=== PATIENT | female | born 1945 | race Caucasian/White ===

== ENCOUNTER 2016-04-02 08:37 | Inpatient (IN) | payer MEDICARE ==
[2016-04-02] MEDS ORDERED: CEFAZOLIN 1 GM VIAL ONE (08:51)
[2016-04-02] MEDS ORDERED: TRANEXAMIC ACID 1,000 MG in NS 100 ML IV ONE (09:00)
[2016-04-02] MEDS: BUPIVACAINE LIPOSOME/PF 1.3% 20 ML VIAL INF ONE ×2 (09:04→11:45)
[2016-04-02 09:13] LABS: BLOOD UREA NITROGEN 25 MG/DL (7-17); CALCIUM 9.8 MG/DL (8.4-10.2); CALCULATED OSMOLALITY 279 MOs/Kg (270-290); CHLORIDE 103 mEq/L (98-107); GLUCOSE 100 MG/DL (70-99); SODIUM LEVEL 143 mEq/L (137-146)
[2016-04-02] MEDS ORDERED: ONDANSETRON HCL 4 MG/2 ML VIAL IV PRN ×2 (09:22→10:06)
[2016-04-02] MEDS ORDERED: hydrALAZINE 20 MG/ML VIAL IV PRN (09:22)
[2016-04-02] MEDS ORDERED: MEPERIDINE 25 MG/ML TUBEX IV PRN (09:22)
[2016-04-02] MEDS ORDERED: LABETALOL 20 MG/4 ML SYRINGE IV PRN (09:22)
[2016-04-02] MEDS ORDERED: HYDROmorphone 1 MG INJECTION IV PRN ×4 (09:22→10:06)
[2016-04-02] MEDS ORDERED: ONDANSETRON HCL 4 MG ODT TAB PO PRN (09:22)
[2016-04-02] MEDS ORDERED: PROMETHAZINE 25 MG/ML VIAL IV PRN ×2 (09:22)
[2016-04-02] MEDS ORDERED: FENTANYL 100 MCG/2 ML VIAL IV PRN ×2 (09:22)
--- NOTE | 2016-04-02 09:26 | SC.ANESPOS ---
Post-Anesthesia Note LOC: [facility] Calling Post-Anesthesia Assessment: Awake, Returned to Baseline, Hemodynamically Stable , Pain Control Adequate Phase I & II Recovery Complete: Yes Apparent Anesthesia Complication: No : N - Vital Signs Blood Pressure: 150/81 Pulse: 91 Resp Rate: 16 O2 Sat: 94 Temp: 98.5 F
--- NOTE | 2016-04-02 09:46 | HIM.ANES ---
Anesthesia Evaluation & Plan Diagnoses: UNILATERAL PRIMARY OSTEOARTHRITIS, RIGHT KNEE (04/02/16) Consented Procedure: right total knee arthroscopy - Focused Review of Systems Cardiac History: Yes: Hx Hypertension, Hx Cardiac Disorders, Hx Abnormal Cholesterol/Hyperlipidemia HEENT: Yes: Cataract Removal (LENS IMPLANTS), Hx Vision Problem (READING GLASSES ), Other HEENT Problems Hx Other HEENT Surgery: TONSILECTOMY Gastrointestinal: Yes: Hx Colonoscopy (2009 NORMAL) No: Hx Gastroesophageal Reflux Disease, Hx Gastrointestinal Disorders Neurological/Musculoskeletal: No: Hx Neurological Disorders Psychological: No Hx Mental/Emotional Disorders Blood/Autoimmune: No: Hx AIDS, Hx Hepatitis (type) Smoking Status: Never smoker Surgical History: Yes: Knee (RT ARTHROSCOPIC SX 2011) Other Surgical History: TONSILECTOMY - Focused Physical Exam NPO since: 04/01/16 1700 Mallampati: Class IV Thyromental Distance: Greater than 3 Neck: Full Range of Motion Dental: Removable Dental Work Cardiovascular/Chest: Normal Respiratory: Decreased breath sounds Any problems with anesthesia, including nausea and vomiting?: No Any relatives with a history of Malignant Hyperthermia?: No Beta Waldemar given (if appropriate): N/A Other: CBC/BMP/Other 04/02/16 08:48 Allergies Allergy/AdvReac Type Severity Reaction Status Date / Time meloxicam [From Mobic] Allergy Unknown Verified 04/02/16 09:02 Home Medications Medication Instructions Recorded Last Taken Type Cyanocobalamin (Vitamin B-12) 1,000 mcg PO DAILY 02/19/16 04/01/16 History [Vitamin B-12] Enalapril Maleate 20 mg PO DAILY 02/19/16 04/02/16 07:15 History Ergocalciferol (Vitamin D2) 50,000 units PO WEEKLY 02/19/16 04/01/16 History [Vitamin D] Simvastatin [Zocor] 10 mg PO HS 02/19/16 04/01/16 History Height and Weight Patient's height 5 ft 3 in Patient's weight 205 lb Vital Signs Temperature 98.5 F 04/02/16 09:26 Pulse Rate 91 04/02/16 09:26 Respiratory Rate 16 04/02/16 09:26 Blood Pressure 150/81 04/02/16 09:26 Pulse Oxygen Saturation 94 04/02/16 09:26 - Anesthetic Plan Anesthesia Type: General ASA Class: 2 -: I have examined this patient and reviewed the medical record. The patient has been assessed prior to anesthesia. Risks and benefits of anesthesia and anesthetic technique options have been discussed and all questions answered. The patient accepts the risk and desires me to proceed with the planned anesthetic.
[2016-04-02] MEDS ORDERED: PROPOFOL 200 MG/20 ML VIAL IV ONE (10:00)
[2016-04-02] MEDS ORDERED: LIDOCAINE 100 MG PFS IV ONE (10:00)
[2016-04-02] MEDS ORDERED: MIDAZOLAM 2 MG/2 ML VIAL IV ONE (10:00)
[2016-04-02] MEDS ORDERED: ONDANSETRON HCL 4 MG/2 ML VIAL IV ONE (10:00)
[2016-04-02] MEDS ORDERED: SUCCINYLCHOLINE 20 MG/1 ML INJ 10 ML MDV IV ONE (10:00)
[2016-04-02] MEDS ORDERED: HYDROmorphone 2 MG/ML VIAL IM ONE (10:00)
[2016-04-02] MEDS ORDERED: DEXAMETHASONE 4 MG/ML VIAL IV ONE (10:00)
[2016-04-02] MEDS ORDERED: FENTANYL 100 MCG/2 ML VIAL IV ONE (10:00)
[2016-04-02] MEDS ORDERED: KETOROLAC TROMETH 30 MG/ML VIAL IM ONE (10:00)
[2016-04-02] MEDS ORDERED: MAGNESIUM HYDROXIDE 30 ML BOTTLE PO PRN (10:06)
[2016-04-02] MEDS ORDERED: Aluminum;Magnesium;Simethicone 30 ML UDC PO PRN (10:06)
[2016-04-02] MEDS ORDERED: DIPHENHYDRAMINE 25 MG CAP PO PRN (10:06)
[2016-04-02] MEDS ORDERED: SODIUM CHLORIDE 0.9% 3 ML FLUSH FLUSH PRN (10:06)
[2016-04-02] MEDS ORDERED: DIPHENHYDRAMINE 50 MG/ML VIAL IV PRN (10:06)
--- NOTE | 2016-04-02 10:14 | HIMOPRPT ---
PREOPERATIVE DIAGNOSIS: Right knee end-stage degenerative joint disease. POSTOPERATIVE DIAGNOSIS: Right knee end-stage degenerative joint disease. PROCEDURE: Right total knee arthroplasty. FINDINGS: End-stage varus gonarthrosis. SPECIMENS REMOVED: Portions of the distal femur, proximal tibia, and posterior patella. EBL: 30 mL. ANESTHESIA: General. COMPLICATIONS: None. SURGEON: Steven Dalal MD. PASSENGER TIRE BUILDER: LES Rodriguez. TOURNIQUET TIME: 43 minutes at 250 mmHg. IMPLANTS: Ruma Triathlon total knee system, metal size 3 cruciate retaining femur; size 4 metallic tibial base plate; 11 mm size 4 tibia polyethylene insert ; 29 x 9 mm asymmetric patella. SIGNIFICANT HISTORY, INDICATIONS, AND CONSENT: Svetlana is a 70-year-old female with longstanding history of right knee pain recalcitrant to conservative treatment secondary to osteoarthritis. After discussing risks, benefits, and alternatives of non-operative treatment and operative intervention, the patient wished to proceed with surgical intervention and consent was obtained with potential benefits of improved knee pain and improved function. OPERATION IN DETAIL: The patient was seen in the preop holding area. The right lower extremity was signed. Consent was reviewed, questions were answered, H and P updated. SCD was placed on the left lower extremity. The patient was taken to the operative room, placed in supine position on the operative table, anesthesia placed monitoring devices and performed intubation. Tourniquet was placed high on the right lower extremity with the right lower extremity being sterilely prepped and draped in the usual orthopedic fashion. Time-out was performed. The patient received prophylactic antibiotics. Consensus was reached amongst participants in the OR suite. Esmarch was used to exsanguinate the limb. Tourniquet raised to 250 mmHg. Standard anterior approach to the knee was performed incising sharply through skin and then performed a medial parapatellar arthrotomy. The superficial MCL was carefully released subperiosteally of the proximal tibia medially. We then released anterior soft tissue structures, everted the patella and gently flexed the knee, being careful to avoid injury to the patellar tendon distally. Next, intramedullary guide was placed within the femur intramedullary canal. We then performed a distal femoral cut removing 8 mm, 5 degrees valgus. After a distal cut was made, this was sized using a posterior condyle referencing system to be a size 3 femur, size 3 cutting block was placed and distal femoral cuts were made in standard fashion. ACL was removed and PCL gently retracted. End-stage medial and patellofemoral arthrosis was noted. Extramedullary guide was placed for a tibial cut, which was perpendicular to the tibia and in line with the tibial crest. Once this was placed, we removed 9 from the high side with 2 mm removed from the more worn plateau. After tibial cut was made, we checked our alignment and found this to be quite appropriate. We then performed flexion-extension gap measuring, and again addressed our soft tissue balancing to appropriately balance the knee. A size 11 mm deep dish insert was found to be most suitable. Our tibial baseplate was sized and rotated in line with the medial 1/3 of the tibial tubercle. This was provisionally pinned and attention turned to our patella cut. Our patella was then sized, removing approximately 7 mm of bone after measuring 22 mm. Fifteen remained, this was sized to a 29 mm patella and the patella was drilled. Components were placed and provisional implants were found to be acceptable in regards to range of motion and ligamentous stability throughout the motion arc. We then performed our fin cut and drilled our femoral implant. Provisional implants were then removed. The cut surfaces were then thoroughly irrigated and dried for cementation. Cementation was being mixed on the back table while we injected Exparel within the deep structures of the knee being careful to aspirate prior to injection. 0.25% Marcaine was also injected at this time in standard fashion. We then began cementation of our tibial, femoral, and patellar components in standard fashion. After these were cemented and held until cement had hardened, excess cement was removed. Range of motion and stability were found to be appropriate. We then allowed tourniquet to be released and immaculate hemostasis was performed with Bovie cautery. Medial parapatellar arthrotomy was closed at the superomedial border of the patella with #1 Ethibond in an interrupted fashion. The remainder of the arthrotomy closed with #1 barbed PDS in a watertight closure. We used 2-0 Vicryl for subcutaneous closure and seb for skin. Sterile soft tissue dressing was placed. The patient was placed in the CHANDLER hose aroused by Anesthesia and taken to postanesthesia care in stable condition. PLAN: The patient will be admitted to Orthopedic Service. Begin CPM in the PACU. Radiographs will be taken in the PACU. 24 hours perioperative antibiotics will be given with 14 days of DVT chemoprophylaxis, and physical therapy beginning this evening
[2016-04-02] MEDS ORDERED: BUPIVACAINE 0.5% 30 ML VIAL ONE (10:31)
[2016-04-02] MEDS ORDERED: SODIUM CHLORIDE 0.9% 3 ML FLUSH FLUSH SCH (11:00)
[2016-04-02] MEDS ORDERED: Pharmacy Discontinue All Previous Acetaminophen Orders SCH (11:00)
[2016-04-02] MEDS ORDERED: NALOXONE 0.4 MG/ML AMPULE IV SCH (11:00)
[2016-04-02] MEDS ORDERED: LR 1,000 ML IV ONE (13:32)
--- NOTE | 2016-04-02 13:39 | DIRPT ---
CLINICAL DATA: Status post elective knee replacement EXAM: PORTABLE RIGHT KNEE - 1-2 VIEW COMPARISON: None in PACs FINDINGS: AP and lateral portable postoperative images reveal placement of a total knee joint prosthesis. Radiographic positioning of the prosthetic components is good. The interface with the [place] bone is normal. There is small amount of fluid and gas in the anterior aspect of the joint space. Skin seb are present. IMPRESSION: There is no immediate postprocedure complication following right total knee joint replacement. Electronically Signed By: French Hernández M.D. On: 04/02/2016 13:36
[2016-04-02] MEDS: CYANOCOBALAMIN (Vitamin B-12) 500 MCG TABLET PO SCH (15:31)
[2016-04-02] MEDS: ACETAMINOPHEN 325 MG/TAB TABLET PO SCH ×2 (15:32→19:48)
--- NOTE | 2016-04-02 17:10 | PCM.ORTHBL ---
- Subjective Hospital Day #: 1 Post Op Day: 0 (s/p R TKA ) Daily Assessment - Patient: Reports: No new complaints, Tolerating liquids well , Afebrile, Ambulating with Physical Therapist - Objective / Physical Exam Vital Signs: Temperature: 97.7 F (04/02/16 15:30) HR: 95 (04/02/16 15:45)RR: 18 (04/02/16 15: 45) BP: 148/86 (04/02/16 15:45)Pulse Ox: 94 (04/02/16 15:45) General: Alert, Oriented x3, Cooperative, Obese Musculoskeletal / Extremities: 2 plus Dorsalis Pedis Pulse, Dressing Clean/Dry/ Intact Neurological: Positive Sensation First Dorsal Web Space, Sensation to light touch intact, Extensor Hallicus Longus Intact, Flexor Hallicus Longus Intact, Dorsiflexion Intact, Plantarflexion Intact Skin: Warm,Dry and Intact Laboratory/Diagnostics Reviewed: Laboratory Results - last 24 hr 04/02/16 04/02/16 04/02/16 08:48 08:48 12:50 Hgb 12.9 Hct 39.0 Sodium 143 Potassium 4.3 Chloride 103 Carbon Dioxide 28 Anion Gap 16 BUN 25 H Creatinine 1.30 H Estimated GFR (MDRD) 41 L Glucose 100 H Calculated Osmolality 279 Calcium 9.8 Blood Type O POSITIVE Antibody Screen Negative - Assessment and Plan (1) Status post total right knee replacement using cement Acute Z96.651 - PRESENCE OF RIGHT ARTIFICIAL KNEE JOINT Present on Admission: No Comment/Plan: s/p R TKA doing well. Post op anbx x 24 hrs, start DVT ppx with ASA 325 mg po BID x 14 days. PT/OT for TK protocol. Pain control with oral and IV meds, ice, and rest. Dispo planning.
[2016-04-02] MEDS: SODIUM CHLORIDE 0.9% 3 ML FLUSH FLUSH SCH (17:12)
[2016-04-02] MEDS ORDERED: Vaccine Screening Complete SCH (18:00)
[2016-04-02] MEDS: PANTOPRAZOLE 40 MG TAB PO SCH (18:02)
[2016-04-02] MEDS: Cefazolin 2gm/50 ml D5W 2 GM/50 ML RTU IV SCH (18:02)
[2016-04-02] MEDS: Aspirin (Orange Enteric Coated) 325 mg tab PO SCH (18:03)
[2016-04-02] MEDS: SIMVASTATIN 10 MG TAB PO SCH (19:48)
[2016-04-02] MEDS: DOCUSATE-SENNA CONCENTRATE TAB PO SCH (19:48)
[2016-04-03] MEDS: Cefazolin 2gm/50 ml D5W 2 GM/50 ML RTU IV SCH ×2 (01:01→08:48)
[2016-04-03] MEDS: PANTOPRAZOLE 40 MG TAB PO SCH ×2 (05:02→18:32)
[2016-04-03] MEDS: ACETAMINOPHEN 325 MG/TAB TABLET PO SCH ×3 (05:02→21:49)
[2016-04-03] MEDS: SODIUM CHLORIDE 0.9% 3 ML FLUSH FLUSH SCH ×2 (05:02→18:32)
--- NOTE | 2016-04-03 06:39 | PCM.ORTHBL ---
- Subjective Chief Complaint: Right knee pain Hospital Day #: 2 Post Op Day: 1 (s/p R TKA ) Daily Assessment - Patient: Reports: No new complaints, Still having pain, Pain is less - Objective / Physical Exam Vital Signs: Temperature: 97.8 F (04/03/16 05:29) HR: 72 (04/03/16 05:29)RR: 18 (04/03/16 05: 29) BP: 129/71 (04/03/16 05:29)Pulse Ox: 94 (04/03/16 05:29) General: Alert, Oriented x3, Cooperative, No acute distress Musculoskeletal / Extremities: 2 plus Dorsalis Pedis Pulse, Dressing Clean/Dry/ Intact, Swelling (mild) Neurological: Sensation to light touch intact (DP/SP/T/S/S), Extensor Hallicus Longus Intact, Flexor Hallicus Longus Intact, Dorsiflexion Intact, Plantarflexion Intact Skin: Warm,Dry and Intact, No rashes, No breakdown Laboratory/Diagnostics Reviewed: Laboratory Results - last 24 hr 04/02/16 04/02/16 04/02/16 08:48 08:48 12:50 Hgb 12.9 Hct 39.0 Sodium 143 Potassium 4.3 Chloride 103 Carbon Dioxide 28 Anion Gap 16 BUN 25 H Creatinine 1.30 H Estimated GFR (MDRD) 41 L Glucose 100 H Calculated Osmolality 279 Calcium 9.8 Blood Type O POSITIVE Antibody Screen Negative - Assessment and Plan (1) Status post total right knee replacement using cement Acute Z96.651 - PRESENCE OF RIGHT ARTIFICIAL KNEE JOINT Present on Admission: No Plan: 70-year-old female postoperative day 1. Status post right total knee arthroplasty. Patient is doing well with pain control. Formal therapy today for gait training, weight-bearing as tolerated. Continue aspirin 325 mg p.o. b.i.d. times 14 days postoperatively. Will finish 24 hours perioperative antibiotics today. Continue SCDs. Anticipate discharge home with home health tomorrow.
--- NOTE | 2016-04-03 06:44 | PCM.DCS92 ---
- Final/Secondary Discharge Diagnosis (1) Status post total right knee replacement using cement Acute Z96.651 - PRESENCE OF RIGHT ARTIFICIAL KNEE JOINT Present on Admission: No Discharge Disposition: Discharge w/ Home Health Discharge Condition: Stable Cognitive Discharge Status: Unimpaired Fuctional Discharge Status: Recent lower extremety joint replacement Physician Follow up/Referrals: Steven Dalal MD [Staff Physician] - Keep Scheduled Appt New Prescriptions: Aspirin (OrangeEnteric Coated) [Ecotrin] 325 mg PO BIDWM #30 tablet Docusate-Senna Concentrate [Senokot S or Tiffanie Colace] 2 tab PO HS #60 tablet Oxycodone Immediate Release [Oxycodone Immediate Release (OxyIR)] 5 - 10 mg PO Q4 PRN #30 tablet PRN Reason: MODERATE TO SEVERE PAIN Discharge Home Medication List Cyanocobalamin (Vitamin B-12) [Vitamin B-12] 1,000 mcg PO DAILY 02/19/16 [ History Confirmed 04/02/16 Last Taken 04/01/16] Enalapril Maleate 20 mg PO DAILY 02/19/16 [History Confirmed 04/02/16 Last Taken 04/02/16 07:15] Ergocalciferol (Vitamin D2) [Vitamin D2 (ergocalciferol)] 50,000 units PO MOFR 02/19/16 [History Confirmed 04/02/16 Last Taken 04/01/16] Simvastatin [Zocor] 10 mg PO HS 02/19/16 [History Confirmed 04/02/16 Last Taken 04/01/16] Aspirin (OrangeEnteric Coated) [Ecotrin] 325 mg PO BIDWM #30 tablet 04/04/16 [ Rx Last Taken Unknown] Docusate-Senna Concentrate [Senokot S or Tiffanie Colace] 2 tab PO HS #60 tablet 03/09 [Rx Last Taken Unknown] Oxycodone Immediate Release [Oxycodone Immediate Release (OxyIR)] 5 - 10 mg PO Q4 PRN #30 tablet 04/04/16 [Rx Last Taken Unknown] Diet at Discharge: Regular Activity: No Heavy Lifting, No Driving Call Office For: Worsening Symptoms, Wound is Draining Pus, Fever over 101 F, Pain Uncontrolled By Meds Discontinue use of:: Alcohol, All Illegal Substances, All Types of Tobacco - DC Summary Notes Hospital Course Note:: Discharge summary on patient named LEONEL GUTHRIE admitted to [facility] on 04/02/16 by Steven Dalal MD. Date of discharge is [2016 HPI: 70-year-old female with longstanding history of right knee pain recalcitrant to conservative treatment including [id number] medications, activity modification, rest, home exercise program, and steroid injection. Patient elected to have right total knee arthroplasty. Hospital course: Postoperatively patient was brought to [facility] with physical therapy started postop day 0. Diet was advanced with bowel bladder function intact. Patient was well controlled with oral and IV medications for postop pain. Physical therapy was progressing nicely postop day 1 and 2. Patient elected to go home with home health. Discharge instructions: Prescriptions provided for pain medication, stool softener, and DVT prophylaxis-take as directed. Patient will follow-up as scheduled in clinic for staple removal and evaluation. Contact our office with any questions or concerns. Dressing to remain clean dry and intact until follow -up.]. - Physical Exam Vital Signs: Initial Vitals Temperature 98.5 F 04/02/16 08:50 Pulse Rate 91 04/02/16 08:50 Respiratory Rate 16 04/02/16 08:50 Blood Pressure 150/81 04/02/16 08:50 Pulse Oxygen Saturation 94 04/02/16 08:50
[2016-04-03 07:28] LABS: MPV 9.2 fL (7.4-10.4)
[2016-04-03] MEDS ORDERED: Remove Transdermal Scopolamine Patch after 24 hours ONE (08:00)
[2016-04-03] MEDS: Aspirin (Orange Enteric Coated) 325 mg tab PO SCH ×2 (08:48→18:31)
[2016-04-03] MEDS: OXYCODONE HCL 5 MG TABLET PO PRN ×2 (08:48→13:33)
[2016-04-03] MEDS: ENALAPRIL MALEATE 20 MG TAB PO SCH (08:48)
[2016-04-03] MEDS ORDERED: Non-Formulary Medication ITEM (Cyanocobalamin (Vitamin B-12) [Vitamin B-12] 1,000 MCG) PO SCH (09:00)
[2016-04-03 09:08] LABS: BLOOD UREA NITROGEN 27 MG/DL (7-17); CALCIUM 9.3 MG/DL (8.4-10.2); CALCULATED OSMOLALITY 274 MOs/Kg (270-290); CHLORIDE 103 mEq/L (98-107); GLUCOSE 105 MG/DL (70-99); SODIUM LEVEL 140 mEq/L (137-146)
[2016-04-03] MEDS: CYANOCOBALAMIN (Vitamin B-12) 500 MCG TABLET PO SCH (11:37)
[2016-04-03] MEDS: DOCUSATE-SENNA CONCENTRATE TAB PO SCH (20:23)
[2016-04-03] MEDS: SIMVASTATIN 10 MG TAB PO SCH (21:49)
[2016-04-04] MEDS: PANTOPRAZOLE 40 MG TAB PO SCH (05:18)
[2016-04-04] MEDS: ACETAMINOPHEN 325 MG/TAB TABLET PO SCH (05:18)
[2016-04-04] MEDS: SODIUM CHLORIDE 0.9% 3 ML FLUSH FLUSH SCH (05:18)
[2016-04-04 05:51] VITALS: BP 147/71; PULSE 110; TEMP 99.7
--- NOTE | 2016-04-04 07:40 | PCM.ORTHBL ---
- Subjective Hospital Day #: 3 Post Op Day: 2 (s/p R TKA ) Daily Assessment - Patient: Reports: No new complaints, Still having pain, Pain is less, Tolerating Regular Diet - Objective / Physical Exam Vital Signs: Temperature: 99.7 F (04/04/16 05:49) HR: 110 (04/04/16 05:49)RR: 20 (04/04/16 05 :49) BP: 147/71 (04/04/16 05:49)Pulse Ox: 93 (04/04/16 05:49) General: Alert, Oriented x3, Cooperative, No acute distress Musculoskeletal / Extremities: 2 plus Dorsalis Pedis Pulse, Dressing Clean/Dry/ Intact Neurological: Sensation to light touch intact (DP/SP/T/S/S), Extensor Hallicus Longus Intact, Flexor Hallicus Longus Intact, Dorsiflexion Intact, Plantarflexion Intact Skin: Warm,Dry and Intact Laboratory/Diagnostics Reviewed: Laboratory Results - last 24 hr 04/03/16 04/04/16 06:50 06:25 WBC 10.0 RBC 3.89 L Hgb 11.7 L Hct 34.5 L MCV 89 MCH 30.1 MCHC 33.9 RDW 13.6 Plt Count 206 MPV 9.0 Sodium 140 Potassium 4.9 Chloride 103 Carbon Dioxide 27 Anion Gap 15 BUN 27 H Creatinine 1.40 H Estimated GFR (MDRD) 37 L Glucose 105 H Calculated Osmolality 274 Calcium 9.3 - Assessment and Plan (1) Status post total right knee replacement using cement Acute Z96.651 - PRESENCE OF RIGHT ARTIFICIAL KNEE JOINT Present on Admission: No Plan: OOB w/ PT. Anticipate d/c home w/ PT today. Rx's on chart. RTC POD #14. COntinue ASA 325mg PO BID x 14 days.
[2016-04-04 07:41] LABS: BLOOD UREA NITROGEN 23 MG/DL (7-17); CALCIUM 9.1 MG/DL (8.4-10.2); CALCULATED OSMOLALITY 277 MOs/Kg (270-290); CHLORIDE 104 mEq/L (98-107); GLUCOSE 104 MG/DL (70-99); SODIUM LEVEL 142 mEq/L (137-146)
[2016-04-04] MEDS: OXYCODONE HCL 5 MG TABLET PO PRN (09:19)
[2016-04-04] MEDS: Aspirin (Orange Enteric Coated) 325 mg tab PO SCH (09:21)
[2016-04-04] MEDS: ENALAPRIL MALEATE 20 MG TAB PO SCH (09:22)
[2016-04-08] MEDS ORDERED: ERGOCALCIFEROL (VITAMIN D2) 50000 UNITS CAP PO SCH (12:00)
== END 2016-04-04 11:19 | disposition home health service (06) | DRG 470 ==
LOC: SDC 08:37 → MPS3 15:19
PROVIDERS: ADMIT Orthopaedic Surgery; ATTEND Orthopaedic Surgery
PROC: 0SRC0J9 Replacement of Right Knee Joint with Synthetic Substitute, Cemented, Open Approach (ICD-10-PCS; principal; 2016-04-02 09:55)
DX: M17.11 Unilateral primary osteoarthritis, right knee (principal); I10 Essential (primary) hypertension; E78.00 Pure hypercholesterolemia, unspecified; Z79.899 Other long term (current) drug therapy; E78.5 Hyperlipidemia, unspecified
CPT/HCPCS: 51798; 80048; 85014; 85018; 85027; 86850; 86900; 86901; 97161; 97165; C9290; G0237; J0330; J0690; J1100; J1170; J1885; J2001; J2250; J2405; J3010; J3490; J7030